=== PATIENT | female | born 1950 | race Caucasian/White ===

== ENCOUNTER → 2016-06-10 | Outpatient (CLI) | payer MEDICARE ==
--- NOTE | 2016-06-13 10:39 | MM ---
Reason for exam: screening (asymptomatic). Last mammogram was performed 1 year and 5 months ago. History: Patient is postmenopausal. Taking estrogen for 15 years 2 months. Physical Findings: A clinical breast exam by your physician is recommended on an annual basis and results should be correlated with mammographic findings. MG 3D Screening Mammo W/Cad Bilateral CC and MLO view(s) were taken. Prior study comparison: January 22, 2015, bilateral MG screening mammo w CAD. September 21, 2012, bilateral digital screening mammo w/CAD. There are scattered fibroglandular densities. Finding: There are typically benign round calcifications in both breasts. There is no discrete abnormality. ASSESSMENT: Benign, BI-RAD 2 RECOMMENDATION: Routine screening mammogram of both breasts in 1 year.
== END | disposition home or self-care (01) ==
LOC: RADMAMWWP 07:05
PROVIDERS: ATTEND Obstetrics & Gynecology
DX: Z12.31 Encounter for screening mammogram for malignant neoplasm of breast (principal)
CPT/HCPCS: 77063; G0202

== ENCOUNTER → 2017-07-07 | Outpatient (CLI) | payer MEDICARE ==
--- NOTE | 2017-07-11 09:10 | MM ---
Reason for exam: screening (asymptomatic). Last mammogram was performed 1 year and 1 month ago. History: Patient is postmenopausal. Took estrogen for 15 years 2 months beginning at age 42. Physical Findings: A clinical breast exam by your physician is recommended on an annual basis and results should be correlated with mammographic findings. MG 3D Screening Mammo W/Cad Bilateral CC and MLO view(s) were taken. Prior study comparison: June 10, 2016, bilateral MG 3d screening mammo w/cad. January 22, 2015, bilateral MG screening mammo w CAD. There are scattered fibroglandular densities. No significant changes when compared with prior studies. ASSESSMENT: Benign, BI-RAD 2 RECOMMENDATION: Routine screening mammogram of both breasts in 1 year.
== END | disposition home or self-care (01) ==
LOC: RADMAMWWP 08:11
PROVIDERS: ATTEND Family Medicine
DX: Z12.31 Encounter for screening mammogram for malignant neoplasm of breast (principal)
CPT/HCPCS: 77063; 77067

== ENCOUNTER 2017-09-26 11:03 | Day surgery (SDC) | payer MEDICARE ==
[2017-09-19 14:58] VITALS: BMI 28.3
[~2017-09-26 11:03] MED LIST: LACTATED RINGERS 1,000 ML IV SCH; LIDOCAINE 1% 20 ML VIAL (10MG/ML) FOR IV START INTRADERMA PRN
[2017-09-26] MEDS: PHENYLEPHRINE 10% OPHTH DROPS 5 ML BTL OP ONE ×3 (12:05→12:23)
[2017-09-26] MEDS: CYCLOPENTOLATE 1% OPHTH SOLN 2 ML BTL OP ONE ×3 (12:08→12:26)
[2017-09-26] MEDS: FLURBIPROFEN 0.03% OPHTH DROPS 2.5 ML BTL OP ONE ×3 (12:11→12:29)
[2017-09-26 12:24] VITALS: RESP 16; TEMP 98.3
[2017-09-26] MEDS ORDERED: LIDOCAINE 1% 20 ML VIAL (10MG/ML) FOR IV START INTRADERMA ONE (12:24)
[2017-09-26] MEDS ORDERED: LIDOCAINE 1% INJ 10MG/ML (20 ML MDV) ONE (13:02)
[2017-09-26] MEDS ORDERED: PROPOFOL 10 MG/ML 20 ML VIAL IV ONE (13:02)
[2017-09-26] MEDS ORDERED: BALANCED SALT IRRIG SOLN COMB2 15 ML IRRIG.SOLN IRRIGATION ONE (13:02)
[2017-09-26] MEDS ORDERED: HYALURONATE SODIUM INTRAOCULAR 1 EACH SYRINGE (10MG/ML) INTRAOCULA ONE (13:02)
[2017-09-26] MEDS ORDERED: EPINEPHrine (PF) 0.5 ML in BALANCED SALT IRRIG SOLN COMB2 500 ML IRRIGATION ONE (13:02)
--- NOTE | 2017-09-26 13:25 | P.OP ---
Date of Procedure: 09/26/17 Procedure(s) Performed: PREOPERATIVE DIAGNOSIS: Cataract, right eye. POSTOPERATIVE DIAGNOSIS: Cataract, right eye. OPERATION: Phacoemulsification cataract, right eye. DESCRIPTION OF PROCEDURE: The patient was taken to the preoperative holding area. Intravenous Propofol was given so as to bring about adequate sedation. The following mixture was given for local anesthesia: 5 mL of 2% lidocaine, 5 mL of 0.75% Marcaine, and 1 mL of Wydase. Approximately 4 mL was injected in the retrobulbar space of the surgical eye. Additional 1 mL was then directed to the temporal area of the surgical eye. This was performed to allow adequate neurological block of the facial muscles. The patient was revived and then taken into the operative room. The patient was prepped and draped in the usual sterile manner for the operative eye. A lid speculum was put into position. The conjunctiva was resected back from the limbus in the 12 o'clock position. Bleeding was controlled with electrocautery. A #69 blade was then used and a half-thickness scleral incision approximately 1-mm posterior to the limbus was made on bare sclera. This was shelved in the clear cornea using a crescent knife. Next a 15-degree blade was used to make a stab incision at the 3 o' clock position at the corneolimbal interface. Keratome blade was then used and the superior wound was extended into the anterior chamber. Viscoelastic was injected into the anterior chamber and to maintain its form. Next, a cystotome was used and a continuous anterior capsulotomy was made without difficulty. Hydrodissection using a blunt cannula and BSS was performed. Phaco probe was then employed and a groove extending from 12 to 6 o'clock in the lens was created. A Rob wand was used through the stab incision so as to perform a divide and conquer technique. Next an irrigation aspiration probe was utilized and any residual cortex was removed from the eye. Again, viscoelastic was injected into the anterior chamber. An Dusty posterior chamber lens implant was placed in the cartridge and injected into the anterior chamber without difficulty. The VChargeey hook was utilized to spin the lens into position and this was again performed without any difficulty. The irrigation and aspiration probe was again employed and any residual viscoelastic was removed from the eye. Then BSS was injected into the limbal stab incision and the anterior chamber re-inflated. The conjunctiva was reapproximated using electrocautery. One drop of 0.25% Timoptic was placed over the corneal along with TobraDex ophthalmic ointment. Two sterile patches and a Taylor eye shield were taped into position. The patient was transported to the recovery room in stable condition. Pathology: none sent Condition: stable Disposition: same day
[2017-09-26 13:48] VITALS: BP 144/73; PULSE 63
[2017-09-26] MEDS ORDERED: BUPIVACAINE (PF) 0.75% 5 ML, HYALURONIDASE, HUMAN RECOMB 150 UNIT, LIDOCAINE 2% (PF) 10... MISCELLANE ONE ×3 (23:00)
[2017-09-26] MEDS ORDERED: TIMOLOL 0.5% OPHTH DROPS 5 ML BTL OP ONE (23:00)
[2017-09-26] MEDS ORDERED: GENTAMICIN/PREDNISOL AC OPHTH OINT 3.5GM OPHTHALMIC ONE (23:00)
== END 2017-09-26 14:01 | disposition home or self-care (01) ==
LOC: OR 11:03
PROVIDERS: ATTEND Ophthalmology
DX: H25.13 Age-related nuclear cataract, bilateral (principal); Z88.2 Allergy status to sulfonamides; Z88.0 Allergy status to penicillin; Z88.1 Allergy status to other antibiotic agents; I10 Essential (primary) hypertension; E78.5 Hyperlipidemia, unspecified; J45.909 Unspecified asthma, uncomplicated; K21.9 Gastro-esophageal reflux disease without esophagitis; Z79.82 Long term (current) use of aspirin; Z79.899 Other long term (current) drug therapy
CPT/HCPCS: 66984; V2632; J3470; J2001 ×2; J0171; J2704

== ENCOUNTER 2018-07-27 08:49 | Day surgery (SDC) | payer MEDICARE ==
[2018-07-24 16:58] VITALS: BMI 29.2
[~2018-07-27 08:49] MED LIST changes: -LIDOCAINE 1% 20 ML VIAL (10MG/ML) FOR IV START INTRADERMA PRN
[2018-07-27 09:09] VITALS: RESP 18; TEMP 98.1
[2018-07-27] MEDS ORDERED: LIDOCAINE 1% 20 ML VIAL (10MG/ML) FOR IV START INTRADERMA ONE (09:15)
[2018-07-27] MEDS ORDERED: LACTATED RINGERS 1,000 ML IV ONE (09:15)
[2018-07-27] MEDS ORDERED: PROPOFOL 10 MG/ML 20 ML VIAL IV ONE (09:44)
[2018-07-27] MEDS ORDERED: LIDOCAINE 1% INJ 10MG/ML (20 ML MDV) ONE (09:44)
--- NOTE | 2018-07-27 10:02 | P.PCN ---
Date of Procedure: 07/27/18 Procedure(s) Performed: BRIEF HISTORY: Patient is a 68-year-old, pleasant, white female, scheduled for an upper endoscopy as a part of evaluation of intermittent episodes of epigastric pain for the last 10 years duration. She has these episodes once or twice a month and lasts for a few seconds and usually goes away. Check cardiac workup as well as nodules of the was negative. Recently was started on Prilosec 20 mg daily with no change in her symptoms. Because of these she is scheduled for an upper endoscopy to evaluate further. PROCEDURE PERFORMED: Esophagogastroduodenoscopy with biopsy. PREOPERATIVE DIAGNOSIS: Intermittent episodes of epigastric pain. IV sedation per anesthesia. PROCEDURE: After informed consent was obtained, the patient was brought into the endoscopy unit. IV sedation was administered by Anesthesia under continuous monitoring. Initially the Olympus GIF-140 video endoscope was inserted into the mouth. Esophagus intubated without any difficulty. It was gradually advanced into the stomach and duodenum and carefully examined. The bulb and the second part of the duodenum appeared normal. The scope at this time was withdrawn to the stomach, adequately insufflated with air, and upon careful examination, mucosa of the antrum had mild patchy areas of erythema in the prepyloric area and this was biopsied. The body, cardia and the fundus appeared normal. The scope was then withdrawn into the esophagus. The GE junction was located at 39 cm from the incisors. Very small sliding Hiatal hernia noted. The esophagus appeared normal. There were no erosions or ulcerations seen and the patient tolerated the procedure well. IMPRESSION: 1. Mild antral gastritis. 2. Small sliding Hiatal hernia but no evidence of esophagitis. RECOMMENDATIONS: The findings of this examination were discussed with the patient as well as a family. She was advised to follow with the biopsy results. She will be seen in office in 3-4 weeks.
[2018-07-27 10:32] VITALS: BP 138/84; PULSE 66
== END 2018-07-27 11:00 | disposition home or self-care (01) ==
LOC: ORWHC2ENDO 08:49
PROVIDERS: ATTEND Internal Medicine Gastroenterology
DX: K29.50 Unspecified chronic gastritis without bleeding (principal); K44.9 Diaphragmatic hernia without obstruction or gangrene; K21.9 Gastro-esophageal reflux disease without esophagitis; M19.90 Unspecified osteoarthritis, unspecified site; J45.909 Unspecified asthma, uncomplicated; I10 Essential (primary) hypertension; E78.5 Hyperlipidemia, unspecified; Z88.0 Allergy status to penicillin; Z88.1 Allergy status to other antibiotic agents; Z88.2 Allergy status to sulfonamides; Z79.899 Other long term (current) drug therapy
CPT/HCPCS: 88305; 88342; 43239; J2001; J2704

== ENCOUNTER 2019-12-25 08:06 | Day surgery (SDC) | payer MEDICARE ==
[2019-12-23 10:31] VITALS: BMI 31.4
[2019-12-25] MEDS ORDERED: LIDOCAINE 1% (10MG/ML) FOR IV START INTRADERMA ONE (08:21)
[2019-12-25 08:32] VITALS: TEMP 98.9
[2019-12-25] MEDS ORDERED: PROPOFOL 10 MG/ML 20 ML VIAL IV ONE (09:21)
--- NOTE | 2019-12-25 09:39 | P.PCN ---
Date of Procedure: 12/25/19 Procedure(s) Performed: BRIEF HISTORY: Patient is a 69-year-old pleasant white female scheduled for an elective colonoscopy as a part of screening for colorectal neoplasia and family history of colon cancer. Her mother was diagnosed with colon cancer at age 75. Her last colonoscopy was 5 years ago PROCEDURE PERFORMED: Colonoscopy. PREOPERATIVE DIAGNOSIS: Screening for colon cancer/family history of colon cancer. IV sedation per Anesthesia. PROCEDURE: After informed consent was obtained, the patient, was brought into the endoscopy unit. IV sedation was administered by Anesthesia under continuous monitoring. Digital rectal examination was normal. Initially the Olympus CF-160 flexible video colonoscope was then inserted in the rectum, gradually advanced into the cecum without any difficulty. Careful examination was performed as the scope was gradually being withdrawn. Ileocecal valve and the appendiceal orifice were visualized and appeared normal. Prep was excellent. Mucosa of the cecum, ascending colon, transverse colon, descending colon, sigmoid colon, and rectum appeared normal. Retroflexion was performed in the rectum and no lesions were seen. The patient tolerated the procedure well. IMPRESSION: Normal-appearing colon from rectum to cecum with no evidence of colitis or colorectal neoplasia. RECOMMENDATIONS: Findings of this examination were discussed with the patient as well as a family. She was advised to have a repeat surveillance colonoscopy in 5 years from now because of the prior history of colon polyps.
[2019-12-25 09:45] VITALS: RESP 14
[2019-12-25 10:14] VITALS: BP 129/82; PULSE 63
== END 2019-12-25 10:29 | disposition home or self-care (01) ==
LOC: ORWHC2ENDO 08:06
PROVIDERS: ATTEND Internal Medicine Gastroenterology
DX: Z12.11 Encounter for screening for malignant neoplasm of colon (principal); Z86.010 Personal history of colon polyps; Z80.0 Family history of malignant neoplasm of digestive organs; I10 Essential (primary) hypertension; E78.5 Hyperlipidemia, unspecified; K21.9 Gastro-esophageal reflux disease without esophagitis; F41.9 Anxiety disorder, unspecified; F32.9 Major depressive disorder, single episode, unspecified; Z88.2 Allergy status to sulfonamides; Z88.1 Allergy status to other antibiotic agents; Z88.0 Allergy status to penicillin; Z79.899 Other long term (current) drug therapy; Z79.82 Long term (current) use of aspirin; Z90.710 Acquired absence of both cervix and uterus; Z90.49 Acquired absence of other specified parts of digestive tract
CPT/HCPCS: G0105; J2704

== ENCOUNTER → 2020-07-06 | Outpatient (CLI) | payer MEDICARE | END | disposition home or self-care (01) | LOC: LABWHC1 07:36 | DX: Z01.818 Encounter for other preprocedural examination (principal); R40.4 Transient alteration of awareness | CPT/HCPCS: U0003; C9803 ==

== ENCOUNTER → 2020-09-15 | Outpatient (CLI) | payer MEDICARE | END | disposition home or self-care (01) | LOC: LABWHC1 07:07 | PROVIDERS: ATTEND Psychiatry & Neurology Neurology | DX: G40.109 Localization-related (focal) (partial) symptomatic epilepsy and epileptic syndromes with simple partial seizures, not intractable, without status epilepticus (principal) | CPT/HCPCS: 36415; 80175 ==

== ENCOUNTER 2021-02-05 09:45 | Emergency (ER) | payer MEDICARE ==
[2021-02-05 09:53] VITALS: BP 111/67; PULSE 60; RESP 18; TEMP 98.1
--- NOTE | 2021-02-05 10:19 | ED ---
General Adult HPI - General Chief complaint: Head Injury Stated complaint: hit head Time Seen by Provider: 02/05/21 09:47 Source: patient, family, RN notes reviewed, old records reviewed Mode of arrival: wheelchair Limitations: no limitations - History of Present Illness Initial comments: 70-year-old female presenting with head injury. No anticoagulation. Only aspirin, no anticoagulation. Patient states prior to arrival she was cleaning her bathroom, slipped and fell [place] striking the top of her head on a cabinet. She struck her head quite hard. There is no loss consciousness. No focal numbness or weakness. She has a baseline resting tremor and history of epilepsy on lamotrigine. Patient denying Worsening neck pain. - Related Data Home Medications Medication Instructions Recorded Confirmed Aspirin 81 mg PO DAILY 12/17/14 12/23/19 Cyanocobalamin/Cobamamide [Vitamin 2,500 mcg SL DAILY 12/17/14 12/23/19 B-12 5,000 Mcg Tab Sl] Escitalopram [Lexapro] 20 mg PO QAM 12/17/14 12/23/19 Fexofenadine HCl 180 mg PO DAILY 12/17/14 12/23/19 L.acidoph,Paracasei, B.lactis 1 each PO DAILY 12/17/14 12/23/19 [Probiotic] ALPRAZolam [Xanax] 0.25 mg PO QAM 09/19/17 12/23/19 Atorvastatin [Lipitor] 20 mg PO HS 09/19/17 12/23/19 Calcium Carbonate/Vitamin D3 1 each PO DAILY 09/19/17 12/23/19 [Calcium 600-Vit D3 500 Softgel] Omeprazole [PriLOSEC] 20 mg PO DAILY 07/24/18 12/23/19 hydroCHLOROthiazide [Hydrodiuril] 12.5 mg PO DAILY 07/24/18 12/23/19 ramipriL [Altace] 5 mg PO QAM 07/24/18 12/23/19 Multivit-Min/Iron/Folic/Lutein 1 each PO DAILY 12/23/19 12/23/19 [Centrum Silver Women Tablet] Tolterodine ER [Detrol LA] 4 mg PO QAM 12/23/19 12/23/19 Allergies Allergy/AdvReac Type Severity Reaction Status Date / Time amoxicillin trihydrate Allergy SOB, Verified 02/05/21 09:53 [From Augmentin] ITCHING, HIVES erythromycin base Allergy SOB, Verified 02/05/21 09:53 ITCHING, HIVES potassium clavulanate Allergy SOB, Verified 02/05/21 09:53 [From Augmentin] ITCHING, HIVES Sulfa (Sulfonamide Allergy SOB, Verified 02/05/21 09:53 Antibiotics) ITCHING, HIVES Review of Systems ROS Statement: Those systems with pertinent positive or pertinent negative responses have been documented in the HPI. ROS Other: All systems not noted in ROS Statement are negative. Past Medical History Past Medical History: Asthma, Hyperlipidemia, Hypertension, Osteoarthritis (OA) Additional Past Medical History / Comment(s): EXERCISED INDUCED ASTHMA. 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 History of Any Multi-Drug Resistant Organisms: None Reported Past Surgical History: Cholecystectomy, Hysterectomy Additional Past Surgical History / Comment(s): EXC SCHWANNOMA TUMOR RT calf, nikky cataracts Past Anesthesia/Blood Transfusion Reactions: No Reported Reaction Past Psychological History: Anxiety, Depression Smoking Status: Never smoker Past Alcohol Use History: None Reported Past Drug Use History: None Reported - Past Family History Father Family Medical History: Cancer Mother Family Medical History: Cancer Additional Family Medical History / Comment(s): colon General Exam Limitations: no limitations General appearance: alert, in no apparent distress Head exam: Present: atraumatic, normocephalic, other (No external signs of trauma, no laceration, no hematoma) Eye exam: Present: normal appearance, PERRL ENT exam: Present: normal exam Neck exam: Present: normal inspection. Absent: tenderness, meningismus Respiratory exam: Present: normal lung sounds bilaterally. Absent: respiratory distress, wheezes Cardiovascular Exam: Present: regular rate, normal rhythm GI/Abdominal exam: Present: soft. Absent: distended, tenderness, guarding Neurological exam: Present: alert, oriented X3, CN II-XII intact, other (Resting tremor bilateral). Absent: motor sensory deficit Psychiatric exam: Present: normal affect, normal mood Skin exam: Present: warm, dry, intact. Absent: cyanosis, diaphoretic Course Vital Signs 02/05/21 09:46 Temperature 98.1 F Pulse Rate 60 Respiratory 18 Rate Blood Pressure 111/67 O2 Sat by Pulse 98 Oximetry Medical Decision Making - Medical Decision Making Head CT performed to rule out intracranial hemorrhage, no intracranial hemorrhage or mass effect. Patient reassured. She will follow with her primary care physician. Disposition Clinical Impression: Concussion without loss of consciousness Disposition: HOME SELF-CARE Condition: Good Instructions (If sedation given, give patient instructions): Concussion (ED) Is patient prescribed a controlled substance at d/c from ED?: No Referrals: Jorge Navas DO [Primary Care Provider] - 1-2 days Time of Disposition: 11:00
--- NOTE | 2021-02-05 10:23 | CT ---
EXAMINATION TYPE: CT brain wo con DATE OF EXAM: 02/05/2021 COMPARISON: none HISTORY: struck Rt side of head on cabinet, c/o Lt temporal pain CT DLP: 1084.[address] of the brain was performed. The ventricles, basal cisterns and sulci overlying the cerebral convexities demonstrate mild enlargem ent. There is no evidence for intracranial hemorrhage or sulcal effacement. There is decreased attenuation about the periventricular white matter and deep white matter of both c erebral hemispheres, compatible with chronic small vessel ischemia. Differential diagnosis does inclu de demyelination. No mass effects are seen.No midline shift. Osseous calvarium is intact. If symptoms persist consider MRI. IMPRESSION: 1. Age related atrophic and chronic small vessel ischemic change without acute intracranial process s een at this time.
== END 2021-02-05 10:47 | disposition home or self-care (01) ==
LOC: EC 09:45
DX: S06.0X0A Concussion without loss of consciousness, initial encounter (principal); R40.2362 Coma scale, best motor response, obeys commands, at arrival to emergency department; R40.2142 Coma scale, eyes open, spontaneous, at arrival to emergency department; R40.2252 Coma scale, best verbal response, oriented, at arrival to emergency department; E78.5 Hyperlipidemia, unspecified; G40.909 Epilepsy, unspecified, not intractable, without status epilepticus; I10 Essential (primary) hypertension; J45.909 Unspecified asthma, uncomplicated; M19.90 Unspecified osteoarthritis, unspecified site; Z79.82 Long term (current) use of aspirin; Z88.0 Allergy status to penicillin; Z88.1 Allergy status to other antibiotic agents; Z79.899 Other long term (current) drug therapy; Z88.2 Allergy status to sulfonamides; W01.190A Fall on same level from slipping, tripping and stumbling with subsequent striking against furniture, initial encounter; Y92.009 Unspecified place in unspecified non-institutional (private) residence as the place of occurrence of the external cause
CPT/HCPCS: 70450; 99283

== ENCOUNTER 2021-05-08 12:58 | Emergency (ER) | payer MEDICARE ==
[2021-05-08 13:28] VITALS: RESP 18; TEMP 98.6
--- NOTE | 2021-05-08 15:38 | ED ---
General Adult HPI - General Chief complaint: Head Injury Stated complaint: head injury Time Seen by Provider: 05/08/21 15:13 Source: patient, RN notes reviewed Mode of arrival: ambulatory Limitations: no limitations - History of Present Illness Initial comments: 71-year-old female presents to the emergency Department with complaints of head injury. Patient states around noon today she was working in her attic and stood up striking her head on the rafters. She does complain of mild headache and tenderness upon palpation of the scalp. Reports concerned stating she was told by her neurologist that if she were to ever have an injury to her head that she would require a scan of her head to check for bleeding. 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 She does not take any blood thinning medications. Patient denies any loss of consciousness, dizziness, vision changes, neck or back pain, weakness, nausea, or vomiting. - Related Data Home Medications Medication Instructions Recorded Confirmed Aspirin 81 mg PO DAILY 12/17/14 12/23/19 Cyanocobalamin/Cobamamide [Vitamin 2,500 mcg SL DAILY 12/17/14 12/23/19 B-12 5,000 Mcg Tab Sl] Escitalopram [Lexapro] 20 mg PO QAM 12/17/14 12/23/19 Fexofenadine HCl 180 mg PO DAILY 12/17/14 12/23/19 L.acidoph,Paracasei, B.lactis 1 each PO DAILY 12/17/14 12/23/19 [Probiotic] ALPRAZolam [Xanax] 0.25 mg PO QAM 09/19/17 12/23/19 Atorvastatin [Lipitor] 20 mg PO HS 09/19/17 12/23/19 Calcium Carbonate/Vitamin D3 1 each PO DAILY 09/19/17 12/23/19 [Calcium 600-Vit D3 500 Softgel] Omeprazole [PriLOSEC] 20 mg PO DAILY 07/24/18 12/23/19 hydroCHLOROthiazide [Hydrodiuril] 12.5 mg PO DAILY 07/24/18 12/23/19 ramipriL [Altace] 5 mg PO QAM 07/24/18 12/23/19 Multivit-Min/Iron/Folic/Lutein 1 each PO DAILY 12/23/19 12/23/19 [Centrum Silver Women Tablet] Tolterodine ER [Detrol LA] 4 mg PO QAM 12/23/19 12/23/19 Allergies Allergy/AdvReac Type Severity Reaction Status Date / Time amoxicillin trihydrate Allergy SOB, Verified 02/05/21 09:53 [From Augmentin] ITCHING, HIVES erythromycin base Allergy SOB, Verified 02/05/21 09:53 ITCHING, HIVES potassium clavulanate Allergy SOB, Verified 02/05/21 09:53 [From Augmentin] ITCHING, HIVES Sulfa (Sulfonamide Allergy SOB, Verified 02/05/21 09:53 Antibiotics) ITCHING, HIVES Review of Systems ROS Statement: Those systems with pertinent positive or pertinent negative responses have been documented in the HPI. ROS Other: All systems not noted in ROS Statement are negative. Past Medical History Past Medical History: Asthma, Hyperlipidemia, Hypertension, Osteoarthritis (OA) Additional Past Medical History / Comment(s): EXERCISED INDUCED ASTHMA. 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 History of Any Multi-Drug Resistant Organisms: None Reported Past Surgical History: Cholecystectomy, Hysterectomy Additional Past Surgical History / Comment(s): EXC SCHWANNOMA TUMOR RT calf, nikky cataracts Past Anesthesia/Blood Transfusion Reactions: No Reported Reaction Past Psychological History: Anxiety, Depression Smoking Status: Never smoker Past Alcohol Use History: None Reported Past Drug Use History: None Reported - Past Family History Father Family Medical History: Cancer Mother Family Medical History: Cancer Additional Family Medical History / Comment(s): colon General Exam Limitations: no limitations (Well-developed, well-nourished female in no acute distress. Initial temperature 98.6, pulse 65, respirations 18, blood pressure 140/75, pulse ox 97% on room air.) General appearance: alert, in no apparent distress Head exam: Present: atraumatic, normocephalic, normal inspection, other (Scalp intact with no hematoma, contusion, or laceration) Eye exam: Present: normal appearance, PERRL, EOMI. Absent: scleral icterus, conjunctival injection, periorbital swelling Neck exam: Present: normal inspection, full ROM. Absent: tenderness, meningismus, lymphadenopathy Respiratory exam: Present: normal lung sounds bilaterally. Absent: respiratory distress, wheezes, rales, rhonchi, stridor Cardiovascular Exam: Present: regular rate, normal rhythm, normal heart sounds. Absent: systolic murmur, diastolic murmur, rubs, gallop, clicks GI/Abdominal exam: Present: soft, normal bowel sounds. Absent: distended, tenderness, guarding, rebound, rigid Neurological exam: Present: alert, oriented X3, CN II-XII intact Expanded Patient oriented to: Present: person, place, time Speech: Present: fluid speech Cranial nerves: EOM's Intact: Normal, Tongue Deviation: Normal Cerebellar function: Finger to Nose: Normal Motor strength exam: RUE: 5, LUE: 5, RLE: 5, LLE: 5 Eye Response: (4) open spontaneously Motor Response: (6) obeys commands Verbal Response: (5) oriented Psychiatric exam: Present: normal affect, normal mood Skin exam: Present: warm, dry, intact, normal color. Absent: rash Course Vital Signs 05/08/21 05/08/21 13:22 17:15 Temperature 98.6 F Pulse Rate 65 57 L Respiratory 18 18 Rate Blood Pressure 140/75 158/71 O2 Sat by Pulse 97 97 Oximetry Medical Decision Making - Medical Decision Making 71-year-old female with a history of epilepsy, presents to the emergency department for evaluation of injury to her head. Patient states she was working in the attic and stood up quickly striking her head on an overhead rafter. On exam, patient is well-appearing, alert and oriented, and is following commands appropriately. She is neurologically intact with no focal deficit. Patient did not experience any loss of consciousness, dizziness, nor nausea and vomiting. Patient does not take any blood thinning medicines. States she was advised by her neurologist that if she were to ever sustain injury to her head that she should be seen in the emergency department. CT of the brain was obtained showing no acute intracranial process. Results were discussed with patient. She will be discharged to follow up with her primary care provider and her neurologist for a recheck. Return parameters were discussed in detail with patient and spouse. They verbalize understanding and agree with this plan. Patient's care was discussed with my attending Dr. Banuelos. - Radiology Data Radiology results: report reviewed, image reviewed CT of the brain was obtained. Report was reviewed in its entirety. Impression per Dr. Mccurdy is mild atrophy. No acute intracranial abnormality. No change. Disposition Clinical Impression: Head injury Disposition: HOME SELF-CARE Condition: Stable Instructions (If sedation given, give patient instructions): Head Injury (ED) Additional Instructions: Follow up with your family doctor for a recheck in one to two days. Call your neurologist to schedule an appointment as needed. Return to the ED with any new, worsening, or concerning symptoms. Is patient prescribed a controlled substance at d/c from ED?: No Referrals: Jorge Navas DO [Primary Care Provider] - 1-2 days Time of Disposition: 17:55
--- NOTE | 2021-05-08 16:47 | CT ---
EXAMINATION TYPE: CT brain wo con DATE OF EXAM: 05/08/2021 COMPARISON: 02/05/2021 HISTORY: Head injury. Hx epilipsy. CT DLP: 1159.4 mGycm Automated exposure control for dose reduction was used. Ventricles have fairly normal size. There is mild cerebral atrophy. There is no mass effect nor midli ne shift. There is no sign of intracranial hemorrhage. Calvarium is intact. There is normal aeration of the mastoid sinuses. IMPRESSION: Mild atrophy. No acute intracranial abnormality. No change.
[2021-05-08 17:16] VITALS: BP 158/71; PULSE 57
== END 2021-05-08 18:03 | disposition home or self-care (01) ==
LOC: EC 12:58
DX: S09.90XA Unspecified injury of head, initial encounter (principal); J45.909 Unspecified asthma, uncomplicated; E78.5 Hyperlipidemia, unspecified; I10 Essential (primary) hypertension; M19.90 Unspecified osteoarthritis, unspecified site; F41.9 Anxiety disorder, unspecified; F32.A Depression, unspecified; Z79.82 Long term (current) use of aspirin; Z88.1 Allergy status to other antibiotic agents; Z88.2 Allergy status to sulfonamides; Z90.49 Acquired absence of other specified parts of digestive tract; Z90.710 Acquired absence of both cervix and uterus; W22.8XXA Striking against or struck by other objects, initial encounter
CPT/HCPCS: 70450; 99284

== ENCOUNTER → 2021-11-26 | Outpatient (CLI) | payer MEDICARE ==
--- NOTE | 2021-11-30 18:16 | MM ---
Reason for Exam: Screening (asymptomatic). Last mammogram was performed 4 year(s) and 5 month(s) ago. Patient History: Menarche at age 10. First Full-Term at age 27. Left ovary removed at age 42. Right ovary removed at age 42. Hysterectomy at age 42. Postmenopausal. Estrogen for 15 years, 2 months, from age 42 until age 67. Risk Values: Nely 5 year model risk: 2.1%. NCI Lifetime model risk: 5.6%. Prior Study Comparison: 01/22/2015 Bilateral Screening Mammogram, [facility]. 06/10/2016 Bilateral Screening Mammogram, [facility]. 07/07/2017 Bilateral Screening Mammogram, [facility]. Tissue Density: There are scattered fibroglandular densities. Findings: Analyzed By CAD. There is no suspicious group of microcalcifications or new suspicious mass in either breast. Overall Assessment: Benign, BI-RAD 2 Management: Screening Mammogram of both breasts in 1 year. 1. Patient should continue monthly self breast exams. 2. A clinical breast exam by your physician is recommended on an annual basis. 3. This exam should not preclude additional follow-up of suspicious palpable abnormalities. Electronically signed and approved by: Madison Whitman M.D. Radiologist
== END | disposition home or self-care (01) ==
LOC: RADMAMWWP 08:13
PROVIDERS: ATTEND Family Medicine
DX: Z12.31 Encounter for screening mammogram for malignant neoplasm of breast (principal); Z78.0 Asymptomatic menopausal state
CPT/HCPCS: 77063; 77067

== ENCOUNTER 2022-08-13 11:00 | Emergency (ER) | payer MEDICARE ==
[2022-08-13 11:20] VITALS: TEMP 98.6
[2022-08-13] MEDS ORDERED: HYDROmorphone 0.5 MG/0.5 ML SYRINGE IVP STA (11:52)
--- NOTE | 2022-08-13 12:02 | ED ---
Fall HPI - General Chief Complaint: Fall Stated Complaint: Fall, Head Injury Time Seen by Provider: 08/13/22 11:23 Source: patient Mode of arrival: ambulatory - History of Present Illness Initial Comments: Patient is a 72-year-old female who presents to the emergency department for evaluation of head injury. Patient was reaching up into a freezer at [facility] and she stepped on one of the shelves but accidentally fell backwards. Patient fell onto the ground and hit her head. She did not lose consciousness. She is on baby aspirin otherwise no blood thinners. 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 Patient has pain in the back of her head where she hit the ground otherwise no generalized headache. She denies blurry vision, double vision, chest pain, shortness of breath nausea, vomiting. Patient also complains of left elbow and right middle finger pain which radiates into her right hand. No issues with range of motion. No numbness and tingling. - Related Data Home Medications Medication Instructions Recorded Confirmed Aspirin 81 mg PO DAILY 12/17/14 10/15/21 Escitalopram [Lexapro] 20 mg PO DAILY 12/17/14 10/15/21 Fexofenadine HCl 180 mg PO DAILY 12/17/14 10/15/21 Heraclio Jean Baptiste B.lactis 1 cap PO DAILY 12/17/14 10/15/21 [Probiotic] Atorvastatin [Lipitor] 20 mg PO HS 09/19/17 10/15/21 Calcium Carbonate/Vitamin D3 1 tab PO DAILY 09/19/17 10/15/21 [Calcium 600-Vit D3 500 Softgel] Omeprazole [PriLOSEC] 20 mg PO DAILY 07/24/18 10/15/21 hydroCHLOROthiazide [Hydrodiuril] 12.5 mg PO DAILY 07/24/18 10/15/21 ramipriL [Altace] 5 mg PO DAILY 07/24/18 10/15/21 Multivit-Min/Iron/Folic/Lutein 1 tab PO DAILY 12/23/19 10/15/21 [Centrum Silver Women Tablet] Oxybutynin Chloride [Ditropan] 5 mg PO BID 10/15/21 10/15/21 Propranolol [Inderal] 10 mg PO BID 10/15/21 10/15/21 Propranolol [Inderal] 10 mg PO DAILY PRN 10/15/21 10/15/21 diazePAM [Valium] 2 mg PO DAILY PRN 10/15/21 10/15/21 lamoTRIgine [lamoTRIgine ER] 200 mg PO DAILY 10/15/21 10/15/21 Allergies Allergy/AdvReac Type Severity Reaction Status Date / Time amoxicillin trihydrate Allergy SOB, Verified 08/13/22 11:20 [From Augmentin] ITCHING, HIVES erythromycin base Allergy SOB, Verified 08/13/22 11:20 ITCHING, HIVES potassium clavulanate Allergy SOB, Verified 08/13/22 11:20 [From Augmentin] ITCHING, HIVES Sulfa (Sulfonamide Allergy SOB, Verified 08/13/22 11:20 Antibiotics) ITCHING, HIVES Review of Systems ROS Statement: Those systems with pertinent positive or pertinent negative responses have been documented in the HPI. ROS Other: All systems not noted in ROS Statement are negative. Past Medical History Past Medical History: Asthma, Hyperlipidemia, Hypertension, Osteoarthritis (OA) Additional Past Medical History / Comment(s): EXERCISED INDUCED ASTHMA. 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 History of Any Multi-Drug Resistant Organisms: None Reported Past Surgical History: Cholecystectomy, Hysterectomy Additional Past Surgical History / Comment(s): EXC SCHWANNOMA TUMOR RT calf, nikky cataracts Past Anesthesia/Blood Transfusion Reactions: No Reported Reaction Past Psychological History: Anxiety, Depression Smoking Status: Never smoker Past Alcohol Use History: None Reported Past Drug Use History: None Reported - Past Family History Father Family Medical History: Cancer Mother Family Medical History: Cancer Additional Family Medical History / Comment(s): colon General Exam Limitations: no limitations General appearance: alert, in no apparent distress Head exam: Present: atraumatic, normocephalic, normal inspection Eye exam: Present: normal appearance, PERRL, EOMI. Absent: scleral icterus, conjunctival injection, periorbital swelling Neck exam: Present: normal inspection, full ROM. Absent: tenderness Respiratory exam: Present: normal lung sounds bilaterally. Absent: respiratory distress, wheezes, rales, rhonchi, stridor Cardiovascular Exam: Present: regular rate, normal rhythm, normal heart sounds. Absent: systolic murmur, diastolic murmur, rubs, gallop, clicks Left Upper Arm exam: Present: normal inspection, full ROM. Absent: tenderness, swelling Elbow exam: Present: full ROM, abrasion. Absent: tenderness, swelling Forearm Wrist exam: Present: normal inspection, full ROM. Absent: tenderness, swelling Hand Wrist exam: Present: normal inspection, full ROM. Absent: tenderness, swelling Vascular: Present: normal capillary refill. Absent: vascular compromise Right Hand Wrist exam: Present: normal inspection, full ROM. Absent: tenderness, swelling, abrasion, deformity, dislocation Vascular: Present: normal capillary refill. Absent: vascular compromise Neurological exam: Present: alert, oriented X3, CN II-XII intact Psychiatric exam: Present: normal affect, normal mood Skin exam: Present: warm, dry, intact, normal color. Absent: rash Course Vital Signs 08/13/22 08/13/22 11:17 12:58 Temperature 98.6 F Pulse Rate 65 68 Respiratory 22 18 Rate Blood Pressure 151/99 126/50 O2 Sat by Pulse 99 100 Oximetry Medical Decision Making - Medical Decision Making Was pt. sent in by a medical professional or institution ([place], PUBLIC SERVICE DIRECTOR, urgent care, hospital, or jail...) When possible be specific @ -No Did you speak to anyone other than the patient for history (EMS, parent, family, police, friend...)? What history was obtained from this source @ -No Did you review nursing and triage notes (agree or disagree)? Why? @ -I reviewed and agree with nursing and triage notes Were old charts reviewed (outside hosp., previous admission, EMS record, old EKG, old radiological studies, urgent care reports/EKG's, jail records)? Report findings @ -No old charts were reviewed Differential Diagnosis (chest pain, altered mental status, abdominal pain women, abdominal pain men, vaginal bleeding, weakness, fever, dyspnea, syncope, headache, dizziness, GI bleed, back pain, seizure, CVA, palpatations, mental health)? @ -not applicable EKG interpreted by me (3pts min.). @ -As above X-rays interpreted by me (1pt min.). @ -Yes, Left elbow x-ray negative for acute process. Right hand x-ray shows lucency involving the third distal phalangeal tuft. No fracture. Patient does not have tenderness here. CT interpreted by me (1pt min.). @ -Yes, CT of the brain and C-spine negative for acute process. U/S interpreted by me (1pt. min.). @ -None done What testing was considered but not performed or refused? (CT, X-rays, U/S, labs)? Why? @ -None What meds were considered but not given or refused? Why? @ -Considered giving Dilaudid however patient states her pain is improved. Tylenol given. Did you discuss the management of the patient with other professionals (professionals i.e. , PA, PUBLIC SERVICE DIRECTOR, lab, RT, psych nurse, social worker aide, dining service inspector, teacher, correctional officer chief, bilingual case manager)? Give summary @ -No Was smoking cessation discussed for >3mins.? @ -No Was critical care preformed (if so, how long)? @ -No Were there social determinants of health that impacted care today? How? (Homelessness, low income, unemployed, alcoholism, drug addiction, transportation, low edu. Level, literacy, decrease access to med. care, snf, rehab)? @ -No Was there de-escalation of care discussed even if they declined (Discuss DNR or withdrawal of care, Hospice)? DNR status @ -No What co-morbidities impacted this encounter? (DM, HTN, Smoking, COPD, CAD, Cancer, CVA, ARF, Chemo, Hep., AIDS, mental health diagnosis, sleep apnea, morbid obesity)? @ -None Was patient admitted / discharged? Hospital course, mention meds given and route, prescriptions, significant lab abnormalities, going to OR and other pert inent info. @ -Patient presenting after fall. Patient well-appearing. No loss consciousness, hematoma, vomiting, laceration. CT of the brain and C-spine negative for acute process. Left elbow and right hand x-ray negative for acute process. Left elbow abrasion cleaned thoroughly. Patient feeling improved and would like to go home. Undiagnosed new problem with uncertain prognosis? @ -No Drug Therapy requiring intensive monitoring for toxicity (Heparin, Nitro, Insulin, Cardizem)? @ -No Were any procedures done? @ -No Diagnosis/symptom? @ -Closed head injury Acute, or Chronic, or Acute on Chronic? @ -Acute Uncomplicated (without systemic symptoms) or Complicated (systemic symptoms)? @ -Uncomplicated Side effects of treatment? @ -No Exacerbation, Progression, or Severe Exacerbation? @ -No Poses a threat to life or bodily function? How? (Chest pain, [place], NH, pneumonia, PE, COPD, DKA, ARF, appy, cholecystitis, CVA, Diverticulitis, Homicidal, Suicidal, threat to staff... and all critical care pts) @ -No Dr. Fuentes is my attending Disposition Clinical Impression: Fall, Closed head injury Disposition: HOME SELF-CARE Condition: Good Instructions (If sedation given, give patient instructions): Fall Prevention for Older Adults (ED) Additional Instructions: Take Tylenol for pain. Avoid anti-inflammatory medications for the next 48 hours. Follow-up with primary care provider in one to 2 days. Return to the emergency department if you experience new, concerning, or worsening symptoms. Is patient prescribed a controlled substance at d/c from ED?: No Referrals: Jorge Navas DO [Primary Care Provider] - 1-2 days
--- NOTE | 2022-08-13 12:22 | CT ---
EXAMINATION TYPE: CT brain araine wo con DATE OF EXAM: 08/13/2022 COMPARISON: Brain 10/15/2021 HISTORY: 72-year-old female with pain after FALL, HIT BACK OF HEAD CT DLP: 1476.2 mGycm Automated exposure control for dose reduction was used. Technique: Examination of the head was done in axial plane without intravenous contrast. Coronal and sagittal reconstructions performed. CT of the cervical spine was obtained in axial plane without intravenous injection of contrast mater ial. Coronal and sagittal reformatted images were obtained from the axial views for evaluation of f ractures, spinal alignment and canal. FINDINGS: Head: There is no evidence of acute intracranial hemorrhage, acute ischemic changes, mass, mass-effect, or extra-axial fluid collection. There is no effacement of cerebral sulci or basal subarachnoid cister ns. There is no midline shift. Paz-white matter distinction is preserved. Mild central cerebral atrophy with similar mild prominence to the ventricular system. There is a posterior scalp contusion. No underlying calvarial fracture. Paranasal sinuses and mastoid air cells are well pneumatized. Orbits and globes are intact. Cervical spine: No craniocervical junction abnormality, predental space widening, or prevertebral soft tissue swellin g. Severe hypertrophic facet and uncovertebral joint arthropathy. On the left, degenerative bony ankylos is across the C3-C5 left-sided facet joints. Moderate to advanced disc/endplate degenerative change C4-C7 levels. Reversal of the normal cervical lordosis. Degenerative grade 1 anterolisthesis C3-C4, C7-T1, T1-T2, and T2-T3. No acute fracture of the cervical spine. There appears to be a moderate focal spinal canal stenosis at C5-C6 and mild to moderate at C3-C4 and C6-C7. Very minimal moderate neuroforaminal stenoses throughout. Severe on the left at C4-C5. Sagittal and coronal reformatted images confirm above findings. COMBINED IMPRESSION: 1. Mild posterior scalp contusion. No underlying calvarial fracture or acute intracranial body seen. 2. No acute fracture of the cervical spine. Moderate to advanced multilevel spondylotic change of the cervical spine as detailed above. Degenerative grade 1 spondylolisthesis C3-C4, C7-T1, T1-T2, and T2 -T3.
--- NOTE | 2022-08-13 12:26 | XR ---
EXAMINATION TYPE: XR elbow complete 3 views LT, XR hand complete 3 views RT DATE OF EXAM: 08/13/2022 COMPARISON: NONE HISTORY: 72-year-old female with pain after fall FINDINGS: Left elbow: Elbow joint effusion. Mild degenerative spurring at the ulnotrochlear joint. No acute fracture, sublu xation, dislocation. Some air projects over the olecranon. This could be projectional artifact or cou ld represent a laceration. Clinically correlate. Right hand: There is moderately severe degenerative change at the first CMC joint. Loose body or fragmented spur measuring 5 mm along the radial margin of the joint. There is lucency involving the tuft of the third distal phalanx. Somewhat corticated appearance on the lateral view. Mild osteoarthritic change throu ghout the DIP joints. Otherwise, no acute fracture, subluxation, dislocation seen. Osteopenia. IMPRESSION: 1. Left elbow: Mild degenerative change along the ulnotrochlear joint. No acute osseous abnormality s een. Query soft tissue laceration overlying the olecranon. 2. Right hand: Lucency involving the third distal phalangeal tuft. Age indeterminate. No fracture. Co rrelate for any focal pain here. Moderate to severe OA at the basal joint of the thumb.
[2022-08-13] MEDS ORDERED: ACETAMINOPHEN TAB 500 MG TAB PO STA (12:35)
[2022-08-13 12:59] VITALS: BP 126/50; PULSE 68; RESP 18
== END 2022-08-13 12:59 | disposition home or self-care (01) ==
LOC: EC 11:00
DX: S00.03XA Contusion of scalp, initial encounter (principal); J45.909 Unspecified asthma, uncomplicated; I10 Essential (primary) hypertension; E78.5 Hyperlipidemia, unspecified; M19.90 Unspecified osteoarthritis, unspecified site; F41.9 Anxiety disorder, unspecified; F32.A Depression, unspecified; Z79.82 Long term (current) use of aspirin; Z79.899 Other long term (current) drug therapy; Z88.0 Allergy status to penicillin; Z88.2 Allergy status to sulfonamides; Z88.8 Allergy status to other drugs, medicaments and biological substances; W01.0XXA Fall on same level from slipping, tripping and stumbling without subsequent striking against object, initial encounter; Y92.328 Other athletic field as the place of occurrence of the external cause
CPT/HCPCS: 70450; 72125; 99284

== ENCOUNTER → 2023-06-09 | Outpatient (CLI) | payer MEDICARE ==
--- NOTE | 2023-06-12 16:59 | MM ---
Reason for Exam: Screening (asymptomatic). Last mammogram was performed 1 year(s) and 6 month(s) ago. Patient History: Menarche at age 10. First Full-Term at age 27. Left ovary removed at age 42. Right ovary removed at age 42. Hysterectomy at age 42. Postmenopausal. Estrogen for 15 years, 2 months, from age 42 until age 67. Risk Values: Nely 5 year model risk: 2.2%. NCI Lifetime model risk: 5.0%. Prior Study Comparison: 06/10/2016 Bilateral Screening Mammogram, [facility]. 07/07/2017 Bilateral Screening Mammogram, [facility]. 11/26/2021 Bilateral MG 3D screening mammo w/cad, [facility]. Tissue Density: There are scattered fibroglandular densities. Findings: Analyzed By CAD. There is no suspicious group of microcalcifications or new suspicious mass in either breast. Overall Assessment: Negative, BI-RAD 1 Management: Screening Mammogram of both breasts in 1 year. . Patient should continue monthly self-breast exams. A clinical breast exam by your physician is recommended on an annual basis. This exam should not preclude additional follow-up of suspicious palpable abnormalities. Note on Enly scores and lifetime risk: 1. A Nely score greater than 3% is considered moderate risk. If this is the case, consider specialist referral to assess eligibility for a risk reducing agent. 2. If overall lifetime risk for the development of breast cancer is 20% or higher, the patient may qualify for future screening with alternating mammogram and breast MRI. Electronically signed and approved by: Madison Whitman M.D. Radiologist
== END | disposition home or self-care (01) ==
LOC: RADMAMWWP 10:18
PROVIDERS: ATTEND Family Medicine
DX: Z12.31 Encounter for screening mammogram for malignant neoplasm of breast (principal); Z78.0 Asymptomatic menopausal state
CPT/HCPCS: 77063; 77067

== ENCOUNTER 2024-01-17 12:10 | Emergency (ER) | payer MEDICARE ==
--- NOTE | 2024-02-06 13:01 | CT ---
EXAMINATION TYPE: CT brain wo con DATE OF EXAM: 01/17/2024 COMPARISON: 08/13/2022 INDICATION: Fall, history of epilepsy DLP: 1064.4 mGycm, Automated exposure control for dose reduction was used. CONTRAST: None CT of the brain is performed utilizing 3 mm thick sections through the posterior fossa and 3 mm thick sections through the remaining calvarium. Study is performed within 24 hours of arrival to the hosp ital. No abnormal hyperdensity is present to suggest an acute intracranial hemorrhage. No mass lesion is evident. No acute infarcts are evident. Sulci are appropriate for the patient's age. Mild prominence of the ventricles may be present. No tem poral horn dilatation is evident. Findings appear stable from comparison. Paranasal sinuses and mastoid air cells within the [id number] are clear. IMPRESSION: 1. No acute intracranial process. Follow up MRI can be performed as clinically indicated. 2. Mild age-related atrophy
== END 2024-01-17 14:25 | disposition home or self-care (01) ==
LOC: EC 12:10
CPT/HCPCS: 70450; 99283

== ENCOUNTER 2024-04-26 15:32 | Emergency (ER) | payer MEDICARE ==
--- NOTE | 2024-04-26 16:20 | ED ---
Head Injury HPI - General Chief complaint: Head Injury Stated complaint: Fall/L Head Time Seen by Provider: 04/26/24 15:47 Source: patient, family, RN notes reviewed Mode of arrival: wheelchair Limitations: physical limitation - History of Present Illness Initial comments: This is a 74-year-old female with a trip and fall at home at 1515 today. Patient states she was stepping down from her porch when she tripped on the second step, landing on her left side onto the cement porch below. Denies loss of consciousness. Patient endorses striking her left eyebrow with associated neck pain, left shoulder pain and right knee pain. Patient endorses daily use of ASA 81 and has history of epilepsy. Patient denies visual changes, dizziness, nausea/vomiting, radiculopathy, paresthesia. MD Complaint: head injury, fall Onset/Timin -: minutes(s) Mechanism of Injury: mechanical fall Location: frontal Loss of Consciousness: no Previous Trauma to this Area: No Place: home Radiation: none Consistency: constant Context: on Aspirin Associated Symptoms: denies other symptoms - Related Data Home Medications Medication Instructions Recorded Confirmed Aspirin 81 mg PO DAILY 12/17/14 10/15/21 Escitalopram [Lexapro] 20 mg PO DAILY 12/17/14 10/15/21 Fexofenadine HCl 180 mg PO DAILY 12/17/14 10/15/21 Heraclio Jean Baptiste B.lactis 1 cap PO DAILY 12/17/14 10/15/21 [Probiotic] Atorvastatin [Lipitor] 20 mg PO HS 09/19/17 10/15/21 Calcium Carbonate/Vitamin D3 1 tab PO DAILY 09/19/17 10/15/21 [Calcium 600-Vit D3 500 Softgel] Omeprazole [PriLOSEC] 20 mg PO DAILY 07/24/18 10/15/21 hydroCHLOROthiazide [Hydrodiuril] 12.5 mg PO DAILY 07/24/18 10/15/21 ramipriL [Altace] 5 mg PO DAILY 07/24/18 10/15/21 Multivit-Min/Iron/Folic/Lutein 1 tab PO DAILY 12/23/19 10/15/21 [Centrum Silver Women Tablet] Propranolol [Inderal] 10 mg PO BID 10/15/21 10/15/21 Propranolol [Inderal] 10 mg PO DAILY PRN 10/15/21 10/15/21 diazePAM [Valium] 2 mg PO DAILY PRN 10/15/21 10/15/21 lamoTRIgine [lamoTRIgine ER] 200 mg PO DAILY 10/15/21 10/15/21 oxyBUTYnin chloride [Ditropan] 5 mg PO BID 10/15/21 10/15/21 Allergies/Adverse reactions: Allergies Allergy/AdvReac Type Severity Reaction Status Date / Time amoxicillin trihydrate Allergy SOB, Verified 04/26/24 15:52 [From Augmentin] ITCHING, HIVES erythromycin base Allergy SOB, Verified 04/26/24 15:52 ITCHING, HIVES potassium clavulanate Allergy SOB, Verified 04/26/24 15:52 [From Augmentin] ITCHING, HIVES Sulfa (Sulfonamide Allergy SOB, Verified 04/26/24 15:52 Antibiotics) ITCHING, HIVES Review of Systems ROS Statement: Those systems with pertinent positive or pertinent negative responses have been documented in the HPI. ROS Other: All systems not noted in ROS Statement are negative. Past Medical History Past Medical History: Asthma, Hyperlipidemia, Hypertension, Osteoarthritis (OA), Seizure Disorder Additional Past Medical History / Comment(s): EXERCISED INDUCED ASTHMA. 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 Focal epilepsy temporal lobe History of Any Multi-Drug Resistant Organisms: None Reported Past Surgical History: Cholecystectomy, Hysterectomy Additional Past Surgical History / Comment(s): EXC SCHWANNOMA TUMOR RT calf, nikky cataracts Past Anesthesia/Blood Transfusion Reactions: No Reported Reaction Past Psychological History: Anxiety, Depression Smoking Status: Never smoker Past Alcohol Use History: None Reported Past Drug Use History: None Reported - Past Family History Father Family Medical History: Cancer Mother Family Medical History: Cancer Additional Family Medical History / Comment(s): colon General Exam Limitations: physical limitation General appearance: alert, in no apparent distress Head exam: Present: atraumatic, normocephalic, other (Positive right occipital tenderness without crepitus) Eye exam: Present: normal appearance, PERRL, EOMI. Absent: scleral icterus, conjunctival injection, periorbital swelling ENT exam: Present: normal exam, mucous membranes moist Neck exam: Present: normal inspection. Absent: tenderness, meningismus, lymphadenopathy Respiratory exam: Present: normal lung sounds bilaterally. Absent: respiratory distress, wheezes, rales, rhonchi, stridor Cardiovascular Exam: Present: regular rate, normal rhythm, normal heart sounds. Absent: systolic murmur, diastolic murmur, rubs, gallop, clicks GI/Abdominal exam: Present: soft, normal bowel sounds. Absent: distended, tenderness, guarding, rebound, rigid Extremities exam: Present: normal inspection, full ROM, normal capillary refill. Absent: tenderness, pedal edema, joint swelling, calf tenderness Back exam: Present: normal inspection Neurological exam: Present: alert, oriented X3, CN II-XII intact Psychiatric exam: Present: normal affect, normal mood Skin exam: Present: warm, dry, intact, normal color. Absent: rash Course Vital Signs 04/26/24 04/26/24 15:52 19:52 Temperature 99 F 97.8 F Pulse Rate 77 66 Respiratory 20 17 Rate Blood Pressure 101/48 150/74 O2 Sat by Pulse 99 100 Oximetry Medical Decision Making - Medical Decision Making Was pt. sent in by a medical professional or institution (, PA, SUPERVISOR [employer]INTENANCE, urgent care, hospital, or longterm...) When possible be specific @ -No Did you speak to anyone other than the patient for history (EMS, parent, family, police, friend...)? What history was obtained from this source @ -No Did you review nursing and triage notes (agree or disagree)? Why? @ -I reviewed and agree with nursing and triage notes Were old charts reviewed (outside hosp., previous admission, EMS record, old EKG, old radiological studies, urgent care reports/EKG's, longterm records)? Report findings @ -No old charts were reviewed Differential Diagnosis (chest pain, altered mental status, abdominal pain women, abdominal pain men, vaginal bleeding, weakness, fever, dyspnea, syncope, headache, dizziness, GI bleed, back pain, seizure, CVA, palpatations, mental health, musculoskeletal)? @ -Differential Headache: Migraine, tension, cluster, carbon monoxide, central venous thrombosis, pension karma temporal arteritis, acute closure glaucoma, intercranial hemorrhage, mastoiditis, sinusitis, head injury, this is not meant to be an all-inclusive list. EKG interpreted by me (3pts min.). @ -Not done X-rays interpreted by me (1pt min.). @ -Left shoulder and scapula x-ray showed no fractures or dislocations. Left knee x-ray showed subtle lucency through patella with radiologist advising consideration for CT. CT interpreted by me (1pt min.). @ -CT of head/cervical/thoracic spine shows no intracranial hemorrhage, fracture. Right knee CT displayed no fracture with mild degeneration changes noted. U/S interpreted by me (1pt. min.). @ -None done What testing was considered but not performed or refused? (CT, X-rays, U/S, labs)? Why? @ -None What meds were considered but not given or refused? Why? @ -None Did you discuss the management of the patient with other professionals (professionals i.e. , PA, SUPERVIS[employer]TENA[employer], lab, RT, psych nurse, sr. social media & mobile manager, manufacturer's representative, teacher, air antisubmarine officer, case assistant)? Give summary @ -No Was smoking cessation discussed for >3mins.? @ -No Was critical care preformed (if so, how long)? @ -No Were there social determinants of health that impacted care today? How? (Homelessness, low income, unemployed, alcoholism, drug addiction, transportation, low edu. Level, literacy, decrease access to med. care, half-way, rehab)? @ -No Was there de-escalation of care discussed even if they declined (Discuss DNR or withdrawal of care, Hospice)? DNR status @ -No What co-morbidities impacted this encounter? (DM, HTN, Smoking, COPD, CAD, Cancer, CVA, ARF, Chemo, Hep., AIDS, mental health diagnosis, sleep apnea, morbid obesity)? @ -None Was patient admitted / discharged? Hospital course, mention meds given and route, prescriptions, significant lab abnormalities, going to OR and other pertinent info. @ -Lab work shows hemoglobin of 10.[address] of head/cervic al/thoracic spine shows no intracranial hemorrhage, fracture. Left shoulder and scapula x-ray showed no fractures or dislocations. Left knee x-ray showed subtle lucency through patella with radiologist advising consideration for CT. Right knee CT displayed no fracture with mild degeneration changes noted. Advised Tylenol every 4-6 hours for pain. RICE of affected areas. Avoid physical exertion or sensory overstimulation for the next week. Undiagnosed new problem with uncertain prognosis? @ -No Drug Therapy requiring intensive monitoring for toxicity (Heparin, Nitro, Insulin, Cardizem)? @ -No Were any procedures done? @ -No Diagnosis/symptom? @ -Concussion, contusion of knee and shoulder Acute, or Chronic, or Acute on Chronic? @ -Acute Uncomplicated (without systemic symptoms) or Complicated (systemic symptoms)? @ -Complicated Side effects of treatment? @ -No Exacerbation, Progression, or Severe Exacerbation? @ -No Poses a threat to life or bodily function? How? (Chest pain, [place], [place], pneumonia, PE, COPD, DKA, ARF, appy, cholecystitis, CVA, Diverticulitis, Homicidal, Suicidal, threat to staff... and all critical care pts) @ -No - Lab Data Result diagrams: 04/26/24 16:47 04/26/24 16:47 Lab Results 04/26/24 04/26/24 04/26/24 Range/Units 16:47 16:47 16:47 WBC 9.0 (3.8-10.6) k/uL RBC 3.86 (3.80-5.40) m/uL Hgb 10.8 L (11.4-16.0) gm/dL Hct 32.9 L (34.0-46.0) % MCV 85.2 (80.0-100.0) fL MCH 28.0 (25.0-35.0) pg MCHC 32.9 (31.0-37.0) g/dL RDW 16.9 H (11.5-15.5) % Plt Count 351 (150-450) k/uL MPV 7.7 Neutrophils % 65 % Lymphocytes % 25 % Monocytes % 5 % Eosinophils % 2 % Basophils % 1 % Neutrophils # 5.9 (1.3-7.7) k/uL Lymphocytes # 2.3 (1.0-4.8) k/uL Monocytes # 0.4 (0-1.0) k/uL Eosinophils # 0.2 (0-0.7) k/uL Basophils # 0.1 (0-0.2) k/uL Hypochromasia Slight Poikilocytosis Slight Anisocytosis Slight PT 10.8 (10.0-12.5) sec INR 1.0 (<1.2) APTT 24.9 (22.0-30.0) sec Sodium 139 (137-145) mmol/L Potassium 4.2 (3.5-5.1) mmol/L Chloride 108 H (98-107) mmol/L Carbon Dioxide 24 (22-30) mmol/L Anion Gap 7 mmol/L BUN 23 H (7-17) mg/dL Creatinine 0.77 (0.52-1.04) mg/dL Est GFR (CKD-EPI)AfAm 87 (>60 ml/min/1.73 sqM) Est GFR (CKD-EPI)NonAf 76 (>60 ml/min/1.73 sqM) Glucose 89 (74-99) mg/dL Calcium 9.5 (8.4-10.2) mg/dL Total Bilirubin 1.0 (0.2-1.3) mg/dL AST 25 (14-36) U/L ALT 21 (4-34) U/L Alkaline Phosphatase 125 (38-126) U/L Total Protein 7.6 (6.3-8.2) g/dL Albumin 4.4 (3.5-5.0) g/dL Disposition Clinical Impression: Concussion without loss of consciousness, Contusion of shoulder, left, Contusion of knee, right Disposition: HOME SELF-CARE Condition: Good Instructions (If sedation given, give patient instructions): Concussion (ED) Is patient prescribed a controlled substance at d/c from ED?: No Referrals: Jorge Navas DO [Primary Care Provider] - 1-2 days Time of Disposition: 19:14
[2024-04-26 16:57] LABS: Anisocytosis Slight; Basophils # (A) 0.1 k/uL (0-0.2); Basophils % (A) 1 %; Eosinophils # (A) 0.2 k/uL (0-0.7); Eosinophils % (A) 2 %; HCT 32.9 % (34.0-46.0); HGB 10.8 gm/dL (11.4-16.0); Hypochromasia Slight; Lymphocytes # (A) 2.3 k/uL (1.0-4.8); Lymphocytes % (A) 25 %; MCHC 32.9 g/dL (31.0-37.0); MCV 85.2 fL (80.0-100.0); Mean Platelet Volume 7.7; Monocytes # (A) 0.4 k/uL (0-1.0); Monocytes % (A) 5 %; Neutrophils # (A) 5.9 k/uL (1.3-7.7); Neutrophils % (A) 65 %; Platelet Count 351 k/uL (150-450); Poikilocytosis Slight; RBC 3.86 m/uL (3.80-5.40); RDW 16.9 % (11.5-15.5)
[2024-04-26 17:12] LABS: ALT 21 U/L (4-34); AST 25 U/L (14-36); African American GFR (CKD) 87 (>60 ml/min/1.73 sqM); Albumin 4.4 g/dL (3.5-5.0); Alkaline Phosphatase 125 U/L (38-126); Anion Gap 7 mmol/L; Blood Urea Nitrogen 23 mg/dL (7-17); Calcium 9.5 mg/dL (8.4-10.2); Carbon Dioxide 24 mmol/L (22-30); Chloride 108 mmol/L (98-107); Glucose 89 mg/dL (74-99); Non-African American GFR(CKD) 76 (>60 ml/min/1.73 sqM); Partial Thromboplastin Time 24.9 sec (22.0-30.0); Potassium 4.2 mmol/L (3.5-5.1); Prothrombin Time 10.8 sec (10.0-12.5); Sodium 139 mmol/L (137-145); Total Protein 7.6 g/dL (6.3-8.2)
--- NOTE | 2024-04-26 17:37 | CT ---
EXAMINATION TYPE: CT brain cspine wo con, CT thoracic spine wo con DATE OF EXAM: 04/26/2024 5:10 PM COMPARISON: 08/13/2022. CLINICAL INDICATION: Female, 74 years old with history of pain; fell today (accession [id number]), Fall , today. (accession [id number]) TECHNIQUE: Brain: Multiple axial CT images of the brain were obtained without IV contrast. Cspine and thoracic spine: Axial imaging of the cervical and thoracic spine were performed without co ntrast.. Coronal and sagittal reformatted images were also reviewed. . CT DLP: Combined DLP of 1998.3 mGycm, Automated exposure control for dose reduction was used. FINDINGS: Brain: Extra-axial spaces: No abnormal extra-axial fluid collections. Ventricular system: Dilatation in proportion to cerebral atrophy. Cerebral parenchyma: Cerebral atrophy. No acute intraparenchymal hemorrhage or mass effect. The mayer -white junction is well differentiated. Scattered hypoattenuating areas are seen within the white mat ter. Cerebellum: Unremarkable. Mass effect: No evidence of midline shift. Intracranial vasculature: unremarkable Soft tissues: Normal. Calvarium/osseous structures: No depressed skull fracture. Paranasal sinuses and mastoid air cells: Clear. Visualized orbits: Bilateral aphakia spine: Fracture: None. Osseous structures: Multilevel degenerative disc disease changes with endplate spurring and disc oste ophyte complex's. Vertebral alignment: Cervical alignment is within normal range. There is grade 1 anterolisthesis of T 1 on T2 and T2-T3 and T3 and T4 in the upper spine. Scattered osteophytes and facet joint arthropathy . Spinal canal/Neural Foramina: Mild spinal canal stenosis at C3-C4 through C6-C7 secondary disc osteop hyte complex's. Moderate bilateral C5-C6 neural foraminal stenosis secondary to uncovertebral joint a rthropathy. Significant spinal canal or neural foraminal stenosis in the thoracic spine. Possible T11 -T12 disc protrusion series 405 image 35. Neck soft tissues: Prevertebral soft tissues are within normal limits. Other: The airway is patent. The lung apices are clear. Atherosclerosis of the carotid bifurcations. Airspace opacity seen in the posterior aspect of the subpleural regions bilaterally. IMPRESSION: 1. No acute intracranial process. 2. Nonspecific white matter changes, likely secondary to chronic small vessel ischemic disease. 3. No evidence of cervical spine fracture. 4. [id number] multilevel degenerative disc disease. 5. Possible T11-T12 disc protrusion series 405 image 35. Consider further evaluation with MRI. 6. Airspace opacity seen in the posterior aspect of the subpleural regions bilaterally. Correlate fo r pneumonia. Consider short-term follow-up CT chest to ensure resolution. [facility], , 04/26/2024 5:35 PM
--- NOTE | 2024-04-26 17:38 | XR ---
EXAMINATION TYPE: XR shoulder complete LT DATE OF EXAM: 04/26/2024 5:24 PM COMPARISON: None CLINICAL INDICATION: Female, 74 years old with history of Fall.; Pain TECHNIQUE: XR shoulder complete LT; examined in AP, internally rotated and scapular Y projections. FINDINGS: No evidence of acute osseous pathology, joint dislocation, or soft tissue swelling. The remaining po rtions of the visualized chest are unremarkable. Degeneration changes of the acromion, distal clavic le with osteophyte formation. There is osteophyte formation of the glenoid and humeral head. There is joint space narrowing of glenohumeral joint. IMPRESSION: 1. No acute osseous pathology. 2. Mild shoulder osteoarthrosis. [facility], , 04/26/2024 5:36 PM
--- NOTE | 2024-04-26 17:45 | XR ---
EXAMINATION TYPE: XR scapula LT DATE OF EXAM: 04/26/2024 5:23 PM COMPARISON: None CLINICAL INDICATION: Female, 74 years old with history of Fall.; Pain TECHNIQUE: XR scapula LT; 2 views. FINDINGS: No evidence of acute osseous pathology, joint dislocation, or soft tissue swelling. The remaining po rtions of the visualized chest are unremarkable. Degeneration changes of the acromion, distal clavic le with osteophyte formation. There is osteophyte formation of the glenoid and humeral head. There is joint space narrowing of glenohumeral joint. IMPRESSION: 1. No acute osseous pathology. 2. Mild shoulder osteoarthrosis. [facility], , 04/26/2024 5:43 PM
--- NOTE | 2024-04-26 17:46 | XR ---
EXAMINATION TYPE: XR knee 4V RT DATE OF EXAM: 04/26/2024 5:24 PM COMPARISON: None CLINICAL INDICATION: Female, 74 years old with history of Fall.; Pain TECHNIQUE: XR knee 4V RT 4 views submitted. FINDINGS: Lucency to the pathology in 2 views unclear if his nutrient foramen/degeneration or tear fr acture which is nondisplaced. Mild degeneration changes with osteophyte formation of the tibial plate au and patella present. IMPRESSION: 1. Subtle lucency through the patella , correlate with pain in the patella. Consider CT imaging for f urther evaluation. 2. Mild tricompartmental osteoarthritic changes. [facility], , 04/26/2024 5:44 PM
--- NOTE | 2024-04-26 18:55 | CT ---
EXAMINATION TYPE: CT knee RT wo con DATE OF EXAM: 04/26/2024 6:47 PM COMPARISON: . Extremity radiograph same day. CLINICAL INDICATION: Female, 74 years old with history of Lucency of patella on x-ray; [facility], Lucency o f patella on x-ray. TECHNIQUE: Axial images were obtained of the CT knee RT wo con, Additional coronal and sagittal refor matted images and soft tissue and bone window were obtained for review. 3-D reconstruction was create d on a separate workstation. Contrast used: mL of , (None if empty) Oral contrast used: (None if empty) CT DLP: 116.4 mGycm, Automated exposure control for dose reduction was used. FINDINGS: Lucency correlates with nutrient foramen on CT imaging. No evidence for fracture. Mild oste ophyte formation and joint space narrowing of the tibial plateau, femoral condyles and patella. There is no evidence of fracture, subluxation, or dislocation. No significant soft tissue swelling or luis nt effusion is identified. No focal muscular atrophy or edema is identified. No radiopaque foreign [place] dy identified. IMPRESSION: 1. Lucency compatible with nutrient foramen no fracture identified. 2. Mild degeneration changes of the knee. [facility], , 04/26/2024 6:52 PM
[2024-04-26 19:54] VITALS: BP 150/74; PULSE 66; RESP 17; TEMP 97.8
== END 2024-04-26 19:54 | disposition home or self-care (01) ==
LOC: EC 15:32
DX: S06.0X0A Concussion without loss of consciousness, initial encounter (principal); S40.012A Contusion of left shoulder, initial encounter; S80.01XA Contusion of right knee, initial encounter; R40.2362 Coma scale, best motor response, obeys commands, at arrival to emergency department; R40.2442 Other coma, without documented Glasgow coma scale score, or with partial score reported, at arrival to emergency department; R40.2142 Coma scale, eyes open, spontaneous, at arrival to emergency department; M47.9 Spondylosis, unspecified; Z88.0 Allergy status to penicillin; Z88.1 Allergy status to other antibiotic agents; Z88.2 Allergy status to sulfonamides; W01.0XXA Fall on same level from slipping, tripping and stumbling without subsequent striking against object, initial encounter; Y92.009 Unspecified place in unspecified non-institutional (private) residence as the place of occurrence of the external cause
CPT/HCPCS: 36415; 70450; 72125; 72128; 80053; 85025; 85610; 85730; 99284

== ENCOUNTER → 2024-10-03 | Outpatient (CLI) | payer MEDICARE ==
--- NOTE | 2024-10-03 13:58 | MM ---
Reason for Exam: Screening (asymptomatic). Last mammogram was performed 1 year(s) and 4 month(s) ago. Patient History: Menarche at age 10. First Full-Term at age 27. Left ovary removed at age 42. Right ovary removed at age 42. Hysterectomy at age 42. Postmenopausal. Estrogen for 15 years, 2 months, from age 42 until age 67. Risk Values: Nely 5 year model risk: 2.2%. NCI Lifetime model risk: 4.7%. Prior Study Comparison: 07/07/2017 Bilateral Screening Mammogram, [facility]. 11/26/2021 Bilateral MG 3D screening mammo w/cad, [facility]. 06/09/2023 Bilateral MG 3D screening mammo w/cad, [facility]. Tissue Density: There are scattered areas of fibroglandular density. Findings: Analyzed By CAD. Right breast: There is no suspicious group of microcalcifications or new suspicious mass. Left breast: There is no suspicious group of microcalcifications or new suspicious mass. Overall Assessment: Negative, BI-RAD 1 Management: Screening Mammogram of both breasts in [address] [facility] will attempt to contact patient to return for supplemental views and ultrasound if indicated. Patient should continue monthly self-breast exams. A clinical breast exam by your physician is recommended on an annual basis. This exam should not preclude additional follow-up of suspicious palpable abnormalities. Note on Nely scores and lifetime risk: 1. A Nely score greater than 3% is considered moderate risk. If this is the case, consider specialist referral to assess eligibility for a risk reducing agent. 2. If overall lifetime risk for the development of breast cancer is 20% or higher, the patient may qualify for future screening with alternating mammogram and breast MRI. [facility], , 10/03/2024 1:56 PM. Electronically signed and approved by: Rohit Tracy DO
== END | disposition home or self-care (01) ==
LOC: RADMAMWWP 13:22
PROVIDERS: ATTEND Family Medicine
DX: Z12.31 Encounter for screening mammogram for malignant neoplasm of breast (principal); R92.323 Mammographic fibroglandular density, bilateral breasts; Z78.0 Asymptomatic menopausal state
CPT/HCPCS: 77063; 77067

== ENCOUNTER 2024-10-04 13:59 | Day surgery (SDC) | payer MEDICARE ==
[2024-10-03 10:47] VITALS: BMI 30.2
[2024-10-04 14:41] VITALS: RESP 16; TEMP 98
[2024-10-04] MEDS: IV FLUID CONTINUATION 1,000 ML IV ONE ×2 (14:51→15:44)
[2024-10-04] MEDS: LACTATED RINGERS 1,000 ML IV SCH (14:52)
[2024-10-04] MEDS ORDERED: PROPOFOL 10 MG/ML 20 ML VIAL IV ONE (15:47)
--- NOTE | 2024-10-04 16:09 | P.PCN ---
Date of Procedure: 10/04/24 Procedure(s) Performed: BRIEF HISTORY: Patient is a 74-year-old pleasant white female scheduled for an elective colonoscopy as a part of screening for colon cancer and family history of colon cancer. Her mother was diagnosed with colon cancer at age 75. PROCEDURE PERFORMED: Colonoscopy. PREOPERATIVE DIAGNOSIS: Screening for colon cancer and family history of colon cancer. IV sedation per Anesthesia. PROCEDURE: After informed consent was obtained, the patient, was brought into the endoscopy unit. IV sedation was administered by Anesthesia under continuous monitoring. Digital rectal examination was normal. Initially the Olympus CF-160 flexible video colonoscope was then inserted in the rectum, gradually advanced into the cecum without any difficulty. Careful examination was performed as the scope was gradually being withdrawn. Ileocecal valve and the appendiceal orifice were visualized and appeared normal. Prep was fair.. Mucosa of the cecum, ascending colon, transverse colon, descending colon, sigmoid colon, and rectum appeared normal. Retroflexion was performed in the rectum and no lesions were seen. The patient tolerated the procedure well. IMPRESSION: Normal-appearing colon from rectum to cecum with no evidence of colorectal neoplasia. RECOMMENDATIONS: Findings of this examination were discussed with the patient as well as her family. She was advised to have repeat screening colonoscopy in 5 years because of the family history of colon cancer..
[2024-10-04 16:29] VITALS: BP 137/68; PULSE 61
== END 2024-10-04 17:01 | disposition home or self-care (01) ==
LOC: ORWHC2ENDO 13:59
PROVIDERS: ATTEND Internal Medicine Gastroenterology
DX: Z12.11 Encounter for screening for malignant neoplasm of colon (principal); K21.9 Gastro-esophageal reflux disease without esophagitis; E78.5 Hyperlipidemia, unspecified; I10 Essential (primary) hypertension; J45.909 Unspecified asthma, uncomplicated; G47.33 Obstructive sleep apnea (adult) (pediatric); G40.909 Epilepsy, unspecified, not intractable, without status epilepticus; Z99.89 Dependence on other enabling machines and devices; Z80.0 Family history of malignant neoplasm of digestive organs; Z91.041 Radiographic dye allergy status; Z88.0 Allergy status to penicillin; Z88.1 Allergy status to other antibiotic agents; Z88.2 Allergy status to sulfonamides; Z79.02 Long term (current) use of antithrombotics/antiplatelets; Z79.82 Long term (current) use of aspirin; Z79.899 Other long term (current) drug therapy
CPT/HCPCS: J2704; G0105